=== PATIENT | female | born 1955 | race Caucasian/White ===

== ENCOUNTER 2017-12-10 11:29 | Outpatient (CLI) | payer OTHER ==
--- NOTE | 2017-12-11 17:54 | Mammography Report ---
DIGITAL SCREENING MAMMOGRAM: 12/10/2017 CLINICAL INDICATION: A 62-year-old for screening. COMPARISON: 01/2016, 06/2013. TECHNIQUE: Routine CC and MLO projections as well as bilateral laterally exaggerated craniocaudal views were obtained of the breasts. FINDINGS: The breasts demonstrate heterogeneously dense fibroglandular parenchyma bilaterally. A few punctate, typically benign calcifications are present. No suspicious masses, clustered microcalcifications, or regions of architectural distortion are identified. IMPRESSION: BENIGN FINDINGS. RECOMMENDATION: Routine annual screening unless otherwise clinically indicated. BIRADS category 2 benign findings. STANDARD QUALIFYING STATEMENTS 1. This examination was reviewed with the aid of Computed-Aided Detection (CAD). 2. A negative or benign imaging report should not delay biopsy if clinically suspicious findings are present. Consider surgical consultation if warranted. More than 5% of cancers are not identified by imaging. 3. Dense breasts may obscure an underlying neoplasm. TD: 12/11/2017 17:53
== END 2017-12-10 11:30 | disposition home or self-care (01) ==
LOC: DI 11:29
DX: Z12.31 Encounter for screening mammogram for malignant neoplasm of breast (principal)
CPT/HCPCS: 77067

== ENCOUNTER 2020-08-16 11:51 | Outpatient (CLI) | payer MEDICARE, OTHER | END 2020-08-16 11:52 | disposition home or self-care (01) | LOC: COV 11:51 | PROVIDERS: ATTEND Family Medicine | DX: M79.10 Myalgia, unspecified site (principal); R53.83 Other fatigue; R68.83 Chills (without fever); R09.81 Nasal congestion; Z20.828 Contact with and (suspected) exposure to other viral communicable diseases ==

== ENCOUNTER 2021-05-16 13:30 | Outpatient (CLI) | payer MEDICARE, OTHER | END 2021-05-16 23:59 | disposition home or self-care (01) | LOC: LAB.S 13:30 | PROVIDERS: ATTEND Physician Assistant Medical | DX: R53.83 Other fatigue (principal); Z20.822 Contact with and (suspected) exposure to COVID-19 ==

== ENCOUNTER 2023-05-29 14:58 | Outpatient (CLI) | payer MEDICARE, OTHER | END 2023-05-29 23:59 | disposition critical access hospital (66) | LOC: EMS 14:58 | DX: R42 Dizziness and giddiness (principal); R00.1 Bradycardia, unspecified | CPT/HCPCS: A0425; A0429 ==

== ENCOUNTER 2023-05-29 15:23 | Emergency (ER) | payer MEDICARE, OTHER ==
[2023-05-29 15:37] VITALS: BP 124/75; O2SAT 98
--- NOTE | 2023-05-29 16:10 | ED Physician Documentation ---
History of Present Illness - Stated complaint Stated Complaint: DIZZINESS - Chief complaint Chief Complaint: Neuro - History obtained from History obtained from: Patient - Additonal information Additional information: 67-year-old woman has had recurrent issues with dizziness over the last few weeks. About 10 days ago had a particular bad episode that started while turning her head and she got rotating like vertigo, "like the room was spinning." She got quite nauseous but did not vomit. Got better over the course of 2 days. Today she had a much shorter and milder episode. There is no associated headache, no focal neurologic issues or complaints. PD PAST MEDICAL HISTORY - Past Medical History Cardiovascular: None Respiratory: None Endocrine/Autoimmune: None GI: None CONSTRUCTION CONTROLLER: None : None HEENT: None Musculoskeletal: None Derm: None - Past Surgical History Past Surgical History: Yes Derm: Skin cancer surgery - Present Medications Home Medications: Ambulatory Orders Medication Instructions Recorded Confirmed Hrt 03/13/16 Meclizine HCl [Motion Sickness] 25 mg PO Q6H PRN #20 tablet 05/29/23 - Allergies Allergies/Adverse Reactions: Allergies Allergy/AdvReac Type Severity Reaction Status Date / Time tetracycline Allergy Unknown Verified 03/13/16 11:03 - Social History Does the pt smoke?: No Smoking Status: Never smoker Does the pt drink ETOH?: No Does the pt have substance abuse?: No - Immunizations Immunizations are current?: Yes - POLST Patient has POLST: No PD ED PE NORMAL - Vitals Vital signs reviewed: Yes - General General: Alert and oriented X 3, No acute distress - HEENT HEENT: PERRL, EOMI, Other (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 Normal lvwgqn-de-nohb and dpqi-gd-rhnb testing. Normal gait.) Eye Opening: Spontaneous Motor: Obeys Commands Verbal: Oriented GCS Score: 15 - Psych Psych: Normal mood, Normal affect Results - Vitals Vitals: Vital Signs - 24 hr 05/29/23 05/29/23 15:28 15:32 Temperature 37 C 37.0 C Heart Rate 53 L 53 L Respiratory 18 18 Rate Blood Pressure 124/75 124/75 O2 Saturation 98 98 Oxygen O2 Source Room air PD Medical Decision Making - ED course ED course: 67-year-old woman with recurrent resolved vertigo not associated with any concerning symptoms to suggest a central cause, they are brought on by rotation, she is asymptomatic now. No need for further testing. Departure - Departure Disposition: 01 Home, Self Care Clinical Impression: BPPV (benign paroxysmal positional vertigo) Qualifiers: Laterality: right Qualified Code(s): H81.11 - Benign paroxysmal vertigo, right ear Condition: Good Record reviewed to determine appropriate education?: Yes Instructions: Vertigo Paroxysmal Positional Prescriptions: Meclizine HCl [Motion Sickness] 25 mg PO Q6H PRN #20 tablet PRN Reason: Dizziness Comments: Your history is consistent with benign paroxysmal positional vertigo. If you are having recurrent issues reasonable to follow-up with an ear nose and throat physician, the closest is in [facility] [phone]. You can do the Bakari maneuver as we discussed if you have a recurrence. Return if worse.
--- OUTSIDE RECORDS SUMMARY | 2023-05-29 16:31 | EXTERNAL MEDICAL SUMMARY RPT | Continuity of Care Document ---
Author Name Unknown Address [address] [place] [address] Phone Organization [facility] Address [address] [place] [address] Phone Results/Labs test date facility value unit notes
== END 2023-05-29 16:20 | disposition home or self-care (01) ==
LOC: EDUNIT# → ED 15:23
DX: H81.11 Benign paroxysmal vertigo, right ear (principal)
CPT/HCPCS: 99283

== ENCOUNTER 2023-11-09 07:00 | Outpatient (CLI) | payer MEDICARE, OTHER ==
--- NOTE | 2023-11-09 14:39 | XRAY Report ---
PROCEDURE: Chest 2V INDICATIONS: ACUTE COUGH/FEVER TECHNIQUE: 2 views of the chest were acquired. COMPARISON: None. FINDINGS: Surgical changes and devices: None. Lungs and pleura: No pleural effusions or pneumothorax. Lungs are clear. Mediastinum: Mediastinal contours appear normal. Heart size is mildly enlarged. Bones and chest wall: No suspicious bony lesions. Overlying soft tissues appear unremarkable. IMPRESSION: No acute cardiopulmonary process. Reviewed by: Stefania Walker MD on 11/09/2023 2:37 PM [facility] Approved by: Stefania Walker MD on 11/09/2023 2:37 PM [facility] Station ID: [id number]
== END 2023-11-09 23:59 | disposition home or self-care (01) ==
LOC: DI.S 07:00
PROVIDERS: ATTEND Registered Nurse
DX: R50.9 Fever, unspecified (principal); R05.1 Acute cough

== ENCOUNTER 2023-11-09 08:00 | Outpatient (CLI) | payer MEDICARE, OTHER | END 2023-11-09 08:01 | disposition home or self-care (01) | LOC: LAB.S 08:00 | PROVIDERS: ATTEND Registered Nurse | DX: R50.9 Fever, unspecified (principal); R05.1 Acute cough ==